=== PATIENT | male | born 1980 | race Caucasian/White ===

== ENCOUNTER 2022-05-11 20:29 | Emergency (ER) | payer OTHER, MEDICARE, SELFPAY ==
--- NOTE | ~2022-05-11 | XR_ITS ---
EXAM: XR finger 4th LT min 2V DATE: 05/11/2022 22:06 HISTORY: lac, r/o FB/open fx, CUT WITH A KNIFE TONIGHT TO 4TH DIGIT . COMPARISON: None available. FINDINGS: Normal mineralization. No fracture or dislocation. No lytic or blastic lesion. Joint space s are maintained. No erosion or periosteal change. Soft tissues within normal limits. IMPRESSION: No acute osseous finding in the left fourth finger. Reviewed, dictated and finalized at location K.
[2022-05-11 20:38] VITALS: BP 177/113; PULSE 81; RESP 18; TEMP 36.3; O2SAT 99
--- NOTE | 2022-05-11 21:49 | ED.WOUNDLAC ---
HPI - Wound/Laceration General Chief Complaint: Wound/Laceration Stated Complaint: laceration Time Seen by Provider: 05/11/22 21:10 Source: patient Mode of arrival: ambulatory Limitations: no limitations History of Present Illness HPI narrative: Patient is a 42 y/o male who presents to the ED with c/o laceration to his left fourth fingertip. Patient reports he works at [employer] and was cutting bread tonight when he accidentally slipped and cut the tip of his left fourth finger. Bleeding controlled at the time of my evaluation. No other injuries. He does report some tingling, but no numbness. Tetanus up-to-date as of last year. Patient has history of hearing loss and primarily uses ASL for interpretation. He is able to hear if you speak loudly. [employer] radio program director was used for initial history taking. Related Data Allergies Allergy/AdvReac Type Severity Reaction Status Date / Time No Known Allergies Allergy Verified 05/11/22 21:10 Review of Systems Review of Systems: CONSTITUTIONAL: Denies fever. SKIN: Reports laceration to tip of left fourth finger. MUSCULOSKELETAL: Denies pain. NEUROLOGIC: Reports tingling of finger. Denies numbness, or weakness. All systems reviewed & are unremarkable except as noted in HPI and below PMFSH Past Medical History Medical History (Updated 05/11/22 @ 23:54 by Rashmi Schmidt PA-C) History of hearing loss Surgical History Surgical History (Updated 05/11/22 @ 23:54 by Rashmi Schmidt PA-C) No pertinent past surgical history Family History Family History (Updated 03/19/15 @ 13:14 by DOCTOR UNKNOWN) Grandparent Depression Carcinoma of colon Family history of malignant neoplasm of brain Other Diabetes mellitus Social History Social History Smoking status: Never smoker Second hand tobacco smoke exposure: No Alcohol intake: never Substance use: never Exam Narrative: GENERAL: Well appearing, well-nourished, non-toxic, in no acute distress. HEAD: Normocephalic, atraumatic. EYES: PERRL/EOMI, conjunctivae clear bilaterally. Left strabismus. EARS: Hearing aids bilaterally. NECK: Supple. No adenopathy, no masses. RESPIRATORY: Airway patent, respirations nonlabored. CARDIOVASCULAR: Regular rate and rhythm without murmurs, rubs, or gallops. Radial pulses 2+ and equal bilaterally. MUSCULOSKELETAL: Moves all extremities. Strength/ROM intact. Approximately 1.5 cm curvilinear flap laceration to left 4th digit fingertip, beginning on radial edge of finger pad and curving to just below free edge of nail. No nail involvement. Laceration does not appear deep. Bleeding controlled. Sharp sensation intact to distal finger tip. SKIN: Warm, dry, normal color. NEURO: A&O X3. Speech clear. Cranial nerves II-XII grossly intact. Steady gait. No ataxic movements. PSYCHIATRIC: Appropriate mood and affect. Normal interaction. Course Vital Signs Vital signs: Vital Signs Temperature 97.4 F L 05/11/22 20:38 Pulse Rate 81 05/11/22 20:38 Respiratory Rate 18 05/11/22 20:38 Blood Pressure 177/113 H 05/11/22 20:38 Pulse Oximetry 99 05/11/22 20:38 Oxygen Delivery Room Air 05/11/22 20:38 Temperature 97.4 F L 05/11/22 20:38 Pulse Rate 81 05/11/22 20:38 Respiratory Rate 16 05/11/22 23:53 Blood Pressure 177/113 H 05/11/22 20:38 Pulse Oximetry 99 05/11/22 20:38 Oxygen Delivery Room Air 05/11/22 20:38 Procedures Laceration Laceration 1: Date: 05/11/22 Time: 23:40 Site: hand (L 4th finger) Side (If applicable): left Size (cm): 1.5 Description: linear (curvilinear) and flap Depth: simple, single layer Local Anesthetic: lidocaine 1% Amount of anesthesia used (mL): 5 Pre-repair: wound explored and irrigated ====== Skin Level ====== Skin layer closed with: nylon Size (cm): 5-0 Number of sutures: 3
[2022-05-11] MEDS: LIDOCAINE HCL 1% LOCAL INJ 20 ML VIAL 5 ML INFILTRATE (23:01)
[2022-05-11 23:53] VITALS: RESP 16
== END 2022-05-11 23:53 | disposition home or self-care (01) ==
PROVIDERS: Emergency Provider Emergency Medicine; PCP Internal Medicine Gastroenterology
DX: S61.215A Laceration without foreign body of left ring finger without damage to nail, initial encounter (principal); W26.0XXA Contact with knife, initial encounter
CPT/HCPCS: 12001; 73140; 99283

== ENCOUNTER 2022-05-13 01:30 | Emergency (ER) | payer OTHER, MEDICARE, SELFPAY ==
[2022-05-13 01:34] VITALS: BP 168/110; PULSE 71; RESP 18; TEMP 36.4; O2SAT 99
--- NOTE | 2022-05-13 01:57 | ED.WOUNDLAC ---
HPI - Wound/Laceration General Chief Complaint: Wound/Laceration Stated Complaint: finger injury left hand Time Seen by Provider: 05/13/22 01:44 History of Present Illness HPI narrative: Patient is a 42-year-old male here for a wound check. Patient had a laceration to his fingertip repaired 2 days ago in the ED. States that today, he had difficulty removing the gauze and so he presented to the emergency department. He notes that there was dried blood in the gauze which made it difficult to remove. Denies fevers, chills, difficulty moving the finger, white drainage from wound. Patient is partially deaf, able to converse when speaking loudly. Related Data Allergies Allergy/AdvReac Type Severity Reaction Status Date / Time No Known Allergies Allergy Verified 05/13/22 01:37 Review of Systems Review of Systems: Gen.: Denies fevers or chills Eyes: Denies eye pain or visual change ENT: Denies congestion Respiratory: Denies shortness of breath or cough CV: Denies chest pain or palpitations GI: Denies abdominal pain nausea, emesis or diarrhea denies burning, urgency, frequency or hematuria Musculoskeletal: Denies back pain or muscle pain Neuro: Denies numbness, tingling, weakness or focal weakness Skin: Reports laceration Except as documented, all other systems reviewed and negative [facility] Past Medical History Medical History History of hearing loss Surgical History Surgical History No pertinent past surgical history Family History Family History (Updated 03/19/15 @ 13:14 by DOCTOR UNKNOWN) Grandparent Depression Carcinoma of colon Family history of malignant neoplasm of brain Other Diabetes mellitus Social History Social History Smoking status: Never smoker Second hand tobacco smoke exposure: No Alcohol intake: never Substance use: never Exam Narrative: Gen: Alert, oriented, no acute distress Eyes: EOMI, no icterus Pulm: Respirations even and unlabored, symmetric thorax expansion, no audible stridor or visible cyanosis CV: Regular rate per telemetry GI: No distension, no voluntary/involuntary guarding Neuro: AOx4, moves all extremities without apparent difficulty or weakness, follows commands Skin: Patient has a well-healing laceration with [address] to his distal left fourth fingertip with dried blood. No surrounding erythema, no drainage from the laceration. Able to move fingers. Psych: Normal mood/affect, insight/judgement good, adequate fund of knowledge, recent/remote memory intact Course Vital Signs Vital signs: Vital Signs Temperature 97.5 F L 05/13/22 01:34 Pulse Rate 71 05/13/22 01:34 Respiratory Rate 18 05/13/22 01:34 Blood Pressure 168/110 H 05/13/22 01:34 Pulse Oximetry 99 05/13/22 01:34 Oxygen Delivery Room Air 05/13/22 01:34 Temperature 97.5 F L 05/13/22 01:34 Pulse Rate 71 05/13/22 01:34 Respiratory Rate 18 05/13/22 01:34 Blood Pressure 168/110 H 05/13/22 01:34 Pulse Oximetry 99 05/13/22 01:34 Oxygen Delivery Room Air 05/13/22 01:34 MDM - Wound/Laceration MDM Narrative Medical decision making narrative: 42-year-old male here for difficulty removing the gauze covering his sutures, which were placed 2 days ago in the ED. supplies moistened with normal saline and removed from the finger without difficulty. There is dried blood around the wound, but no signs of infection. No continued bleeding. Patient was reassured, discussed return precautions and encouraged him to follow-up as scheduled to get the sutures removed. Discharge Plan Discharge Clinical Impression: Visit for wound check Patient Disposition: Home, Self-Care Condition: Stable Instructions: Antibiotic Form, Care For Your Stitches (ED) Additional Instructions: Your wo
== END 2022-05-13 02:54 | disposition home or self-care (01) ==
LOC: ANHED 02:09
PROVIDERS: Emergency Provider Emergency Medicine; PCP Internal Medicine Gastroenterology
DX: S61.215D Laceration without foreign body of left ring finger without damage to nail, subsequent encounter (principal); H91.90 Unspecified hearing loss, unspecified ear; X58.XXXD Exposure to other specified factors, subsequent encounter
CPT/HCPCS: 99282

== ENCOUNTER 2022-05-20 16:41 | Emergency (ER) | payer MEDICARE, SELFPAY ==
[2022-05-20 17:05] VITALS: BP 168/100; PULSE 77; RESP 16; TEMP 36.3; O2SAT 100
--- NOTE | 2022-05-20 17:27 | ED.GENADULT ---
HPI - General Adult General Chief complaint: Unspecified <Hannah Messina PA-C - Last Filed: 05/20/22 21:10> Stated complaint: finger injury <Hannah Messina PA-C - Last Filed: 05/20/22 21:10> Time Seen by Provider: 05/20/22 17:20 <Hannah Messina PA-C - Last Filed: 05/20/22 21:10> History of Present Illness HPI narrative: Patient is a 42-year-old male with a history of deafness here for a wound check. Patient had stitches placed to his left fourth fingertip on 05/11. He had the stitches removed yesterday by his primary care provider, and he presents today with concerns that the laceration opened back up . Denies difficulty moving the digit, paresthesias, significant pain, purulent drainage, bleeding from the wound, fevers or chills. Patient is deaf but is able to understand if spoken to at a high volume. <Hannah Messina PA-C - Last Filed: 05/20/22 21:10> Related Data Allergies/adverse reactions: Allergies Allergy/AdvReac Type Severity Reaction Status Date / Time No Known Allergies Allergy Verified 05/13/22 01:37 <Hannah Messina PA-C - Last Filed: 05/20/22 21:10> Review of Systems Review of Systems: Gen.: Denies fevers or chills Eyes: Denies eye pain or visual change ENT: Denies congestion Respiratory: Denies shortness of breath or cough CV: Denies chest pain or palpitations GI: Denies abdominal pain nausea, emesis or diarrhea denies burning, urgency, frequency or hematuria Musculoskeletal: Denies back pain or muscle pain Neuro: Denies numbness, tingling, weakness or focal weakness Skin: Reports wound Except as documented, all other systems reviewed and negative <Hannah Messina PA-C - Last Filed: 05/20/22 21:10> PMFSH Past Medical History Medical History: Medical History History of hearing loss <Hannah Messina PA-C - Last Filed: 05/20/22 21:10> Surgical History Surgical History: Surgical History No pertinent past surgical history <Hannah Messina PA-C - Last Filed: 05/20/22 21:10> Family History Family History: Family History (Updated 03/19/15 @ 13:14 by DOCTOR UNKNOWN) Grandparent Depression Carcinoma of colon Family history of malignant neoplasm of brain Other Diabetes mellitus <Hannah Messina PA-C - Last Filed: 05/20/22 21:10> Social History Social History: Social History Smoking status: Never smoker Second hand tobacco smoke exposure: No Alcohol intake: never Substance use: never <Hannah Messina PA-C - Last Filed: 05/20/22 21:10> Exam Narrative: Gen: Alert, oriented Eyes: EOMI, no icterus Pulm: Respirations even and unlabored, symmetric thorax expansion, no audible stridor or visible cyanosis CV: Regular rate per telemetry GI: No distension, no voluntary/involuntary guarding Neuro: AOx4, moves all extremities without apparent difficulty or weakness, follows commands MSK: No edema or tenderness along flexor tendon. FROM in all digits without pain. Skin: Patient's left fourth fingertip wound is healing well with no active drainage, bleeding. Psych: Normal mood/affect, insight/judgement good, adequate fund of knowledge, recent/remote memory intact <Hannah Messina PA-C - Last Filed: 05/20/22 21:10> Course Course Emergency Course: For this patient encounter, I reviewed the HOME CARE SPECIALIST or PA documentation, treatment plan, and medical decision making <Manjit Munoz MD - Last Filed: 05/21/22 08:28> Vital Signs Vital signs: Vital Signs Temperature 97.4 F L 05/20/22 17:05 Pulse Rate 77 05/20/22 17:05 Respiratory Rate 16 05/20/22 17:05 Blood Pressure 168/100 H 05/20/22 17:05 Pulse Oximetry 100 05/20/22 17:05 Temperature 97.4 F L
== END 2022-05-20 17:55 | disposition home or self-care (01) ==
LOC: ANHED 17:47
PROVIDERS: Emergency Provider Emergency Medicine; PCP Internal Medicine Gastroenterology
DX: S61.215D Laceration without foreign body of left ring finger without damage to nail, subsequent encounter (principal); H91.90 Unspecified hearing loss, unspecified ear; X58.XXXD Exposure to other specified factors, subsequent encounter
CPT/HCPCS: 99282